=== PATIENT | male | born 1980 | race Caucasian/White ===

== ENCOUNTER 2019-03-04 21:55 | Emergency (ER) | payer OTHER ==
[2019-03-04] MEDS ORDERED: Tetracaine 0.5% OPHTH SOLN/PF 4 ML BOT ONE (22:18)
== END 2019-03-04 22:49 | disposition home or self-care (01) ==
LOC: MADERS 21:55
DX: S05.02XA Injury of conjunctiva and corneal abrasion without foreign body, left eye, initial encounter (principal); F17.220 Nicotine dependence, chewing tobacco, uncomplicated; X58.XXXA Exposure to other specified factors, initial encounter
CPT/HCPCS: 99283

== ENCOUNTER 2019-04-06 19:13 | Emergency (ER) | payer OTHER, SELFPAY ==
[~2019-04-06 19:13] MED LIST: Sodium Chloride 0.9% Irrigation 1000 ML BOT ONE
--- NOTE | 2019-04-06 19:43 | RAD ---
RIGHT HAND RADIOGRAPHS THREE VIEWS 04/06/19 PROVIDED CLINICAL HISTORY: Laceration. FINDINGS: No evidence for fracture or other acute osseous abnormality. Alignment appears anatomic. Joint spaces appear preserved. No evidence for radiopaque foreign body. IMPRESSION: No evidence for an acute osseous abnormality. If there is persistent clinical concern, conservative m anagement and follow-up imaging are advised. POS: [facility]
[2019-04-06] MEDS ORDERED: Lidocaine 1% 20 ML MDV ONE (19:50)
[2019-04-06] MEDS ORDERED: Bacitracin 1 PK ONE ×2 (20:09→20:24)
== END 2019-04-06 20:30 | disposition home or self-care (01) ==
LOC: MADERS 19:13
DX: S61.254A Open bite of right ring finger without damage to nail, initial encounter (principal); F17.220 Nicotine dependence, chewing tobacco, uncomplicated; W54.0XXA Bitten by dog, initial encounter
CPT/HCPCS: J2001

== ENCOUNTER 2019-04-11 19:56 | Emergency (ER) | payer OTHER, SELFPAY ==
[~2019-04-11 19:56] MED LIST changes: -Sodium Chloride 0.9% Irrigation 1000 ML BOT ONE; +Sodium Chloride Irrig Solution 250 ML BOT ONE
[2019-04-11] MEDS ORDERED: Lidocaine 1% w/Epinephrine 1:100K 20 ML VIAL ONE (20:15)
== END 2019-04-11 21:06 | disposition home or self-care (01) ==
LOC: MADERS 19:56
DX: S61.214A Laceration without foreign body of right ring finger without damage to nail, initial encounter (principal); W54.0XXA Bitten by dog, initial encounter; F17.220 Nicotine dependence, chewing tobacco, uncomplicated
CPT/HCPCS: 12001; J2001

== ENCOUNTER 2020-01-16 20:42 | Emergency (ER) | payer SELFPAY ==
[2020-01-16 21:34] LABS: #Basophils 0.1 thou/uL (0.0-0.2); #Monocytes 0.7 thou/uL (0.11-0.59); #Neutrophils 4.6 thou/uL (1.40-6.50); %Basophils 0.9 % (0.0-1.0); %Eosinophils 0.3 % (0.0-10.0); %Lymphocytes 26.6 % (21.0-51.0); %Neutrophils 62.1 % (42.0-75.0); Hemoglobin 15.7 g/dL (14.0-18.0); Mean Corpuscular HGB CONC 31.9 g/dL (32.0-36.0); Mean Corpuscular Hemoglobin 29.8 pg (27.0-31.0); Mean Corpuscular Volume 93.3 fL (78.0-98.0); Mean Platelet Volume 8.4 fL (7.4-10.4); Platelet Count 299 thou/uL (130-400); RBC Distribution Width 11.8 % (11.5-14.5); Red Blood Cell (RBC) Count 5.25 mill/uL (4.70-6.10); White Blood Cell (WBC) Count 7.4 thou/uL (4.8-10.8)
[2020-01-16 21:38] LABS: INR-International Normal Ratio 1.1; Prothrombin Time 13.7 sec (12.0-14.7)
[2020-01-16 21:49] LABS: ALT (SGPT) 21 U/L (8-55); AST (SGOT) 18 U/L (5-34); Albumin 4.5 g/dL (3.5-5.0); Alkaline Phosphatase 54 U/L (40-110); Anion Gap 15 mmol/L (10-20); BUN (Urea Nitrogen) 23 mg/dL (8.9-20.6); Calc. Creatinine Clearance 0 mL/min (70-130); Calcium 9.5 mg/dL (7.8-10.44); Carbon Dioxide 26 mmol/L (22-29); Chloride 104 mmol/L (98-107); Estimated GFR-MDRD 80; Globulin 2.9 g/dL (2.4-3.5); Glucose 90 mg/dL (70-105); Potassium 3.6 mmol/L (3.5-5.1); Protein, Total 7.4 g/dL (6.0-8.3); Sodium 141 mmol/L (136-145)
--- NOTE | 2020-01-16 23:02 | RAD ---
Portable frontal chest radiograph: 01/16/2020 COMPARISON: None HISTORY: Syncope FINDINGS: Lungs are clear. Heart and mediastinal contours appear within normal limits. IMPRESSION: No acute findings.
== END 2020-01-16 23:33 | disposition home or self-care (01) ==
LOC: MADERS 20:42
DX: R55 Syncope and collapse (principal); S09.90XA Unspecified injury of head, initial encounter; F17.220 Nicotine dependence, chewing tobacco, uncomplicated
CPT/HCPCS: 36415; 71045; 80053; 83880; 84484; 85025; 85610; 93005